=== PATIENT | female | born 1985 | race African-American/Black ===

== ENCOUNTER 2023-09-12 12:52 | Emergency (ER) | payer OTHER ==
[~2023-09-12] VITALS: Ht 167.6 cm; Wt 90.7 kg
[2023-09-12 13:18] VITALS: BP 126/92; PULSE 114; RESP 22; TEMP 97.6; O2SAT 97
[2023-09-12] MEDS ORDERED: ALBUTEROL 0.083% 2.5 MG/3 ML NEBU INH ONE (13:45)
[2023-09-12] MEDS ORDERED: predniSONE 20 MG TAB PO ONE (13:45)
[2023-09-12] MEDS ORDERED: IPRATROPIUM 0.02% 0.5 MG/2.5 ML NEBU INH ONE (13:45)
[2023-09-12 13:58] VITALS: PULSE 104; RESP 20; O2SAT 98
[2023-09-12] MEDS ORDERED: ALBU0.0912 INH (14:28)
[2023-09-12] MEDS ORDERED: PRED20TA5 PO (14:28)
[2023-09-12 15:33] VITALS: PULSE 111; RESP 18; TEMP 98.3; O2SAT 95
== END 2023-09-12 15:32 | disposition home or self-care (01) ==
LOC: MED 12:52
DX: J45.901 Unspecified asthma with (acute) exacerbation (principal); Z79.899 Other long term (current) drug therapy
CPT/HCPCS: 71046; 94640; 99283; J7512; J7613; J7644

== ENCOUNTER 2023-09-14 12:22 | Emergency (ER) | payer SELFPAY ==
[~2023-09-14] VITALS: Ht 162.6 cm; Wt 136.7 kg
[~2023-09-14 12:22] MED LIST: ALBU0.0912 INH; PRED20TA5 PO
[2023-09-14 12:50] VITALS: BP 155/91; PULSE 108; RESP 18; TEMP 97.1; O2SAT 96
[2023-09-14] MEDS ORDERED: ALBUTEROL SULFATE/IPRATROPIU 3 ML SOL IH ONE (13:35)
[2023-09-14] MEDS ORDERED: DEXAMETHASONE 10 MG/ML VIAL IM ONE (13:35)
[2023-09-14] MEDS ORDERED: DEXAMETHASONE 10 MG/ML VIAL ONE (15:12)
[2023-09-14] MEDS ORDERED: PRON INH (15:26)
[2023-09-14] MEDS ORDERED: PROM118S5 PO (15:26)
== END 2023-09-14 15:32 | disposition home or self-care (01) ==
LOC: MED 12:22
DX: J45.909 Unspecified asthma, uncomplicated (principal); R03.0 Elevated blood-pressure reading, without diagnosis of hypertension; Z79.899 Other long term (current) drug therapy
CPT/HCPCS: 96372; 99283; J1100